=== PATIENT | female | born 1995 | race Caucasian/White ===

== ENCOUNTER 2017-08-05 08:53 | Emergency (ER) | payer OTHER ==
[~2017-08-05] VITALS: Ht 162.6 cm; Wt 54.4 kg
[2017-08-05 09:03] VITALS: TEMP 36.7; Ht 162.6 cm; Wt 54.4 kg
[2017-08-05] MEDS ORDERED: DIPH25CA65 PO (09:14)
[2017-08-05] MEDS ORDERED: CETI10CA PO (09:14)
[2017-08-05] MEDS ORDERED: RANITIDINE HCL 50 MG/100 ML D5W IV STA (09:20)
[2017-08-05] MEDS ORDERED: DiphenhydrAMINE HCL 50 MG/ML VIAL IV STA (09:20)
[2017-08-05] MEDS ORDERED: METHYLPREDNISOLONE 125 MG VIAL IV STA (09:20)
[2017-08-05] MEDS ORDERED: SODIUM CHLORIDE 0.9% 500ML 500 ML IV STA (09:20)
[2017-08-05] MEDS ORDERED: RANITIDINE IV 50 MG in DEXTROSE 5% 100ML 100 ML IV ONE (09:30)
[2017-08-05] MEDS ORDERED: EpINEphrine INJ 1MG/ML AMP 1 MG/ML AMP IM STA (10:41)
[2017-08-05 11:21] VITALS: O2SAT 99
[2017-08-05] MEDS ORDERED: METH4PAK PO (14:37)
[2017-08-05 14:58] VITALS: BP 110/60; PULSE 92; O2SAT 96
--- NOTE | 2017-08-05 15:48 | EMERGENCY ROOM VISIT NOTE ---
History First contact with patient: 09:08 Chief Complaint: ALLERGIC REACTION Stated Complaint: SWOLLEN EYES, RUNNY NOSE, BURNING/ITCHING THROAT Nursing Triage Summary: last few days s/s of allergic reaction unknown casue seeing clerical dentist assistant worse this am eyes swollen, painful and itchy throat is sore and itchy no rash no short of breath took 2 zyrtec at 0700 has epi pen did not take History of Present Illness The patient is a 22 year old female who presents to the Emergency Room with complaints of swelling, burning and itchiness of her face and throat. The patient reports that she has had similar symptoms that have been intermittent over the past 3 weeks. She was recently diagnosed with possible idiopathic angioedema. She was seen [address] Hinson, an clerical dentist assistant at [facility]. The patient reports that she was instructed to take Benadryl and Zantac for symptoms. The patient reports that she has required ED management in the past with epinephrine and steroids. The patient reports that she did take 2 Benadryl last night without relief, and to Zyrtec this morning with no relief. The patient denies any chest pain, shortness of breath or swelling of the throat, tongue or lips. She denies any other recent upper respiratory infections, and rates her overall discomfort a 7 out of 10. Review of Systems HEENT: Denies dizziness, visual problems, hearing loss, tinnitus. Denies difficulty swallowing or oral lesions. PULMONARY: Denies cough, shortness of breath, sputum production or hemoptysis. CARDIOVASCULAR: Denies chest pain, palpitations, dyspnea on exertion, orthopnea or peripheral edema. GASTROINTESTINAL: Denies diarrhea, constipation, nausea, vomiting, or abdominal pain. GENITOURINARY: Denies dysuria, frequency, urgency or nocturia. NEUROLOGIC: Denies history of epilepsy, CVA, TIA or chronic headaches. MUSCULOSKELETAL: History of juvenile rheumatoid arthritis. SKIN: Denies significant rashes or lesions. PSYCHIATRIC: History of anxiety. ENDOCRINE: Denies history of diabetes or thyroid disorders. Past Medical/Surgical History Medical Problems: (1) Angioedema (2) Juvenile rheumatoid arthritis Surgical Problems: (1) History of ankle fusion Family History Angioedema FH: rheumatoid arthritis Social History Smoking Status: Never Smoker Alcohol Use: none Marital Status: single Housing Status: lives with family Occupation Status: [employer] student Current/Historical Medications Scheduled Cetirizine Hcl (Zyrtec Allergy), 10 MG PO DAILY Methylprednisolone (Medrol Dosepak), 0 PO DAILY Scheduled PRN Diphenhydramine Hcl (Benadryl Allergy), 25 MG PO DAILY PRN for Allergic Reaction Physical Exam Vital Signs Date Time Temp Pulse Resp B/P (MAP) Pulse Ox O2 Delivery O2 Flow Rate FiO2 08/05/17 14:58 92 16 110/60 96 08/05/17 14:02 106 16 100/60 08/05/17 12:18 102 16 111/55 98 Room Air 08/05/17 12:07 112 08/05/17 11:21 99 Room Air 08/05/17 10:30 87 16 133/80 95 08/05/17 09:05 99 Room Air 08/05/17 09:03 36.7 117 20 127/83 99 Room Air Physical Exam CONSTITUTIONAL: Healthy and well nourished. Alert and oriented X 3 with positive affect. Patient does not appear in any acute distress. HEENT: Examination shows moderate periorbital edema and facial swelling without overriding erythema, vesicles, pustules or desquamation. Eyes are visible with normal exam. Pupils equal, round and reactive. EOMs intact without discomfort. Ears and nares are clear. OROPHARYNX: No evidence for angioedema, posterior pharyngeal erythema or other new callosal lesions. NECK: Full active range of motion without discomfort. RESPIRATORY: Clear to auscultation bilaterally with no wheezing, crackles, rhonchi or stridor. CARDIOVASCULAR: Regular rate and rhythm with no murmurs, rubs or gallops. GASTROINTESTINAL: Bowel sounds present in all quadrants. MUSCULOSKELETAL: Full range of motion of all joints without discomfort. INTEGUMENTARY: No rash or other significant dermatologic conditions noted. NEUROLOGIC: No focal neurologic deficits noted. Medical Decision & Procedures Laboratory Results Test 08/05/17 14:33 Medications Administered Medications (Trade) Dose Ordered Sig/Delisa Route Start Time Stop Time Status Last Admin Dose Admin Sodium Chloride 500 ml @ 999 mls/hr Q31M STAT IV 08/05/17 09:20 08/05/17 09:50 DC 08/05/17 09:35 999 MLS/HR Diphenhydramine HCl (Benadryl Inj) 25 mg NOW STAT IV 08/05/17 09:20 08/05/17 09:21 DC 08/05/17 09:34 25 MG Methylprednisolone Sodium Succinate (Solu-Medrol IV) 125 mg NOW STAT IV 08/05/17 09:20 08/05/17 09:21 DC 08/05/17 09:34 125 MG Ranitidine HCl 50 mg/Dextrose 102 ml @ 204 mls/hr TODAY@0930 ONCE IV 08/05/17 09:30 08/05/17 09:59 DC 08/05/17 10:13 204 MLS/HR Epinephrine HCl (EpINEphrine INJ 1MG/ML AMP/VIAL) 0.3 mg NOW STAT IM 08/05/17 10:41 08/05/17 10:42 DC 08/05/17 11:15 0.3 MG ED Course Patient history and physical exam were performed. Nurse's notes were reviewed. Vital signs were reviewed and were normal. The patient is mildly tachycardic on initial exam with a heart rate of 117; however, she does appear somewhat anxious. The patient reports that she has responded well in the past with IV medications. IV access was established, and the patient was hydrated with normal saline. She was also administered IV Benadryl, Zantac and Solu-Medrol. An ice pack was also applied. The patient was observed for approximately 1 hour with no improvement of her symptoms. At this point, the patient specifically requested that I administer epinephrine. I explained that epinephrine usually does not improve symptoms of angioedema, but would be willing to do so if she felt that epinephrine helped her in the past. I also discussed the case with Dr. Jain, ED attending physician. The patient was placed on monitoring tech, and was administered epinephrine 0.3 mg subcutaneously. After 1 hour, reassessment did not show any significant improvement. At 2 hours, the patient's nurse reported that she still did not have any significant relief of her symptoms. At this point, the patient's mother had arrived. She requested that I speak with Dr. Hinson. I did call and speak with her through the [facility] ([phone]). She was in agreement with the treatment provided. She has requested that we draw a C4 complement, and agreed that the Medrol Dosepak on discharge, along with antihistamines that were discussed with her in the past, be continued. The patient does have an appointment with her in early August. Dr. Hinson has requested that she call their office if she needs to be seen sooner, and she is welcome to drive to [place] for reevaluation. This information was relayed back to the patient and mother who were in agreement with this plan. Other than mild tachycardia, cardiac monitoring was normal. Upon reevaluation at 3-1/ 2 hours, the patient reported that she has noticed significant reduction of swelling of her face, and the itching/burning sensation has also resolved. She clinically appears much better with the periorbital edema. The patient was provided a prescription for a Medrol Dosepak. Medical Decision Patient presents with angioedema that the patient has been suffering for the past 3 weeks. 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 Further C4 complement testing should hopefully help to differentiate this from a hereditary angioedema. The patient is currently under the management of an clerical dentist assistant who will continue further workup. Today the patient has had significant improvement of her symptoms with treatment provided. I do not feel that further admission or observation is warranted. Medication Reconcilliation Current Medication List: was personally reviewed by me Blood Pressure Screening Patient's blood pressure: Normal blood pressure Impression Primary Impression: Angioedema Departure Information Dispostion Home / Self-Care Prescriptions Methylprednisolone (MEDROL DOSEPAK) 4 Mg Abdirahman 0 PO DAILY, #1 PKT Prov: Ceasar Silver PA 08/05/17 Forms HOME CARE DOCUMENTATION FORM, IMPORTANT VISIT INFORMATION Patient Instructions My [facility], ED Angioedema Additional Instructions Take Medrol Dosepak as prescribed. Continue with your medications as recommended by Dr. Hinson. Call her office sooner with worsening symptoms. Return to the emergency department for significantly worsening symptoms. Problem Qualifiers Primary Impression: Angioedema Encounter type: initial encounter Qualified Codes: T78.3XXA - Angioneurotic edema, initial encounter
== END 2017-08-05 15:02 | disposition home or self-care (01) ==
LOC: C.EDB 08:56
DX: T78.3XXA Angioneurotic edema, initial encounter (principal); X58.XXXA Exposure to other specified factors, initial encounter; M08.00 Unspecified juvenile rheumatoid arthritis of unspecified site; Z79.899 Other long term (current) drug therapy